=== PATIENT | female | born 1980 | race Caucasian/White ===

== ENCOUNTER 2023-04-30 12:03 | Inpatient (IN) | payer OTHER, MEDICAID ==
[2023-04-30] VITALS (35 sets, daily range): BP systolic 112–156; BP diastolic 55–93; PULSE 80–125; RESP 0–21; TEMP 97.4–98.1; O2SAT 93–100
[~2023-04-30] VITALS: Ht 172.7 cm; Wt 110.7 kg
[2023-04-30] MEDS ORDERED: SEMA0.253 INJ (12:48)
[2023-04-30] MEDS ORDERED: famotidine 20mg tablet PO ONE (13:00)
[2023-04-30] MEDS ORDERED: ceFOXitin 2GM-NS 100mL ADDvant 100 ML IV ONE (13:00)
[2023-04-30] MEDS ORDERED: HYDROmorphone/PF 0.2 MG/ML SYRINGE IM ONE (13:20)
[2023-04-30] MEDS ORDERED: HYDROmorphone/PF 0.2 MG/ML SYRINGE IV ONE (13:35)
[2023-04-30] MEDS: ringers solution, lacted 1,000 ML IV SCH (13:42)
[2023-04-30] MEDS ORDERED: BUPIVAcaine/PF 2.5mg/ml (0.25%) 10ml vial ONE (13:56)
[2023-04-30] MEDS ORDERED: propofol inj 20 ML IV ONE (15:19)
[2023-04-30] MEDS ORDERED: midazolam 1 mg/ML 2ml injection ONE (15:19)
[2023-04-30] MEDS ORDERED: rocuronium 10mg/ml inj IV ONE (15:19)
[2023-04-30] MEDS ORDERED: fentaNYL/PF 50MCG/1 ML 2ML syringe ONE (15:19)
[2023-04-30] MEDS ORDERED: sevoflurane 250ml liquid IH ONE (15:26)
[2023-04-30] MEDS ORDERED: ondansetron/PF 4mg/2ml inj IV PRN ×2 (15:30→19:50)
[2023-04-30] MEDS ORDERED: meperidine/PF 25mg/ml syringe IV PRN ×2 (15:30)
[2023-04-30] MEDS ORDERED: proCHLORperazine 10 MG/2 ml inj IV PRN (15:30)
[2023-04-30] MEDS ORDERED: ringers solution, lacted 1,000 ML IV SCH (15:30)
[2023-04-30] MEDS ORDERED: morphine 2 MG/ML inj. syringe IV PRN (15:30)
[2023-04-30] MEDS ORDERED: dexamethasone sod phosphate 4mg/ml inj. ONE (15:41)
[2023-04-30] MEDS ORDERED: ondansetron/PF 4mg/2ml inj ONE (16:18)
[2023-04-30] MEDS ORDERED: acetaminophen 1,000mg/100ml IV 100 ML IV ONE (16:21)
[2023-04-30] MEDS ORDERED: bacitracin 15gm ointment TP ONE (16:29)
[2023-04-30] MEDS ORDERED: sugammadex 200mg/2ml injection IV ONE (16:30)
--- NOTE | 2023-04-30 16:43 | NUR ---
Received from OR via [facility] IN STABLE CONDITION , accompanied by Anesthesiologist and CASE TECHNICIAN report given by CASE TECHNICIAN AND Anesthesiologist. Addendum: 04/30/23 at 1834 by Jemima Sheth RN Amended: Links added.
[2023-04-30] MEDS: meperidine/PF 25mg/ml syringe IV PRN ×4 (16:57→18:24)
[2023-04-30] MEDS ORDERED: BUPIVAcaine 0.25% w/Epi /PF 30ml vial IJ ONE (16:57)
[2023-04-30] MEDS ORDERED: oxyCODONE/APAP 10/325mg tablet PO STA (17:28)
[2023-04-30] MEDS: morphine 4 MG/ML inj SYRINge IV PRN ×3 (18:49→19:24)
[2023-04-30] MEDS ORDERED: ketorolac trometh. 30mg/ml inj. IV ONE (19:30)
[2023-04-30] MEDS ORDERED: ketamine 50mg/5ml syringe IV PRN (19:30)
[2023-04-30] MEDS ORDERED: HYDROmorphone/PF 0.2 MG/ML SYRINGE IV PRN (19:30)
[2023-04-30] MEDS ORDERED: HYDROmorph/NS 0.2 mg/ml PCA 100 ML IV SCH (19:50)
[2023-04-30] MEDS ORDERED: oxyCODONE/APAP 5-325mg tablet PO PRN (19:50)
[2023-04-30] MEDS: HYDROmorph/NS 0.2 mg/ml PCA 100 ML IV SCH ×2 (20:41→23:00)
--- NOTE | 2023-04-30 20:53 | NUR ---
PATIENT DISCHARGED FROM PACU IN STABLE CONDITION AFTER REPORT GIVEN TO RN TAKING OVER PATIENTS CARE. PATIENT TRANSFERRED TO ROOM 3012A VIA [facility] HEREDIA RN. Addendum: 04/30/23 at 2102 by Jemima Sheth RN Amended: Links added.
--- NOTE | 2023-04-30 21:00 | NUR ---
PATIENT RECIEVED FROM RECOVERY ROOM VIA GURNEY AND TRANSFERRED TO BED AND MADE HER COMFORTABLE.
[2023-04-30] MEDS ORDERED: PCA WASTE DOCUMENTATION 1 MG ML MC SCH (21:35)
[2023-04-30] MEDS ORDERED: zolpidem 5mg tablet PO PRN (23:00)
[2023-05-01] VITALS (7 sets, daily range): BP systolic 108–131; BP diastolic 53–74; PULSE 9–93; RESP 14–18; TEMP 97.9–98.8; O2SAT 93–99
[2023-05-01] MEDS: HYDROmorph/NS 0.2 mg/ml PCA 100 ML IV SCH ×9 (01:00→17:00)
--- NOTE | 2023-05-01 07:10 | NUR ---
Problems reprioritized. Patient report given, questions answered & plan of care reviewed with RADHA BANEGAS.
--- NOTE | 2023-05-01 09:38 | NUR ---
Dr Carroll in to see patient patient will be staying another night for pain control and nausea/vomiting control
[2023-05-01] MEDS: ringers solution, lacted 1,000 ML IV SCH ×3 (11:53→11:57)
[2023-05-01] MEDS: ondansetron/PF 4mg/2ml inj IV PRN (13:11)
[2023-05-01] MEDS: docusate sod 100mg capsule PO SCH ×2 (17:47→20:00)
[2023-05-01] MEDS ORDERED: oxyCODONE/APAP 10/325mg tablet PO PRN (19:00)
[2023-05-01] MEDS: oxyCODONE/APAP 10/325mg tablet PO PRN (19:18)
[2023-05-01] MEDS ORDERED: zolpidem 5mg tablet PO PRN (21:00)
[2023-05-02 02:00] VITALS: BP 127/63; PULSE 89; RESP 16; TEMP 98; O2SAT 93
[2023-05-02] MEDS: oxyCODONE/APAP 10/325mg tablet PO PRN ×2 (02:29→08:49)
[2023-05-02] MEDS: ondansetron/PF 4mg/2ml inj IV PRN ×2 (03:23→08:48)
[2023-05-02 06:00] VITALS: BP 126/71; PULSE 90; RESP 15; TEMP 97.3; O2SAT 95
--- NOTE | 2023-05-02 06:40 | NUR ---
Patient in room PCU 3015. I have received report from RADHA Guerrier and had the opportunity to ask questions and assume patient care.
[2023-05-02 08:45] VITALS: RESP 16; O2SAT 95
[2023-05-02] MEDS: docusate sod 100mg capsule PO SCH (08:48)
[2023-05-02 09:15] LABS: BASOPHILS % (AUTO) 0.3 % (0-1); EOSINOPHILS # (AUTO) 0.1 X10'3 (0-0.9); HEMATOCRIT 38.1 % (35.0-45.0); HEMOGLOBIN 12.9 g/dl (12.0-16.0); LYMPHOCYTES # (AUTO) 3.1 X10'3 (1.1-4.8); LYMPHOCYTES % (AUTO) 35.7 % (21-51); MEAN CORPUSCULAR HEMOGLOBIN 32.1 PG (27.0-31.0); MEAN CORPUSCULAR HGB CONC 33.8 g/dL (33.0-36.5); MEAN PLATELET VOLUME 7.8 FL (7.4-10.4); MONOCYTES # (AUTO) 0.5 X10'3 (0-0.9); MONOCYTES % (AUTO) 5.8 % (2-12); NEUTROPHILS % (AUTO) 57.2 % (42-75); PLATELET COUNT 235 X10'3 (140-440); RED BLOOD COUNT 4.01 X10'6 (4.20-5.60); RED CELL DISTRIBUTION WIDTH 13.3 % (11.5-14.5); WHITE BLOOD COUNT 8.7 X10'3 (4.5-11.0)
[2023-05-02 09:27] LABS: ALANINE AMINOTRANSFERASE 66 U/L (12-78); ALBUMIN 2.6 G/DL (3.4-5.0); ALBUMIN/GLOBULIN RATIO 0.8 (1.1-1.5); ALKALINE PHOSPHATASE 54 IU/L (46-116); ANION GAP 9 (8-16); ASPARTATE AMINO TRANSFERASE 55 U/L (10-37); BILIRUBIN,TOTAL 0.3 MG/DL (0.1-1.0); BLOOD UREA NITROGEN 15 MG/DL (7-18); BUN/CREATININE RATIO 12.6 (10.0-20.0); CALCIUM 8.3 MG/DL (8.5-10.1); CHLORIDE 103 MMOL/L (99-107); CREATININE 1.19 MG/DL (0.40-0.90); GLUCOSE 131 MG/DL (70-104); POTASSIUM 3.6 MMOL/L (3.5-5.1); SODIUM 136 MMOL/L (135-145); TOTAL CARBON DIOXIDE 24.1 MMOL/L (24-32); eCRCL 62 ML/MIN; eGFR 50 ML/MIN
[2023-05-02 09:49] VITALS: RESP 16
--- NOTE | 2023-05-02 10:30 | NUR ---
Pt aware of being DC'd ( had provided verbally to pt & received verbal order for routine DC as well @ approx 0930) & found by co-workers walking down hallway towards elevators. By the time informed of this, unable to catch up to pt to ask her to wait for the DC instuctions. Pt previously informed that after informs pt he is discharging her from the hospital that time is needed to prepare the DC & then give her the instructions, that she would need to wait for myself to complete the discharge, remove her IV & WC or ambulate her to the front exit. Pt verbalized understanding.
== END 2023-05-02 10:45 | disposition left against medical advice (07) | DRG 419 ==
LOC: OR 12:03 → PCU 3S 19:50 → OBSVTOIN 19:50 → PCU 3S 21:55
PROVIDERS: ADMIT Surgery; ATTEND Surgery
PROC: 0HB4XZZ Excision of Neck Skin, External Approach (ICD-10-PCS; 2023-04-30)
PROC: 0FT44ZZ Resection of Gallbladder, Percutaneous Endoscopic Approach (ICD-10-PCS; principal; 2023-04-30 15:26)
DX: K80.42 Calculus of bile duct with acute cholecystitis without obstruction (principal); Z53.21 Procedure and treatment not carried out due to patient leaving prior to being seen by health care provider; Z90.710 Acquired absence of both cervix and uterus
CPT/HCPCS: Z7506; Z7508; 36415; 80053; 82948; 83735; 85025; 87081; A4215; A4618; A6213; A7000; G0378; J0131; J0694; J1100; J1170; J1885; J2175; J2250; J2270; J2405; J2704; J3010; J3490; J7120; S0020

== ENCOUNTER 2024-12-16 13:21 | Emergency (ER) | payer MEDICAID, OTHER ==
[~2024-12-16] VITALS: Ht 170.2 cm; Wt 104.5 kg
[~2024-12-16 13:21] MED LIST: SEMA0.253 INJ
[2024-12-16 13:34] VITALS: BP 118/72; PULSE 85; TEMP 98.5; O2SAT 96
--- NOTE | 2024-12-16 15:05 | Physician Documentation ---
History of Present Illness ~ Chief Complaint: Back Pain Stated Complaint: LOWER BACK PAIN Time Seen by MD: 14:52 HPI Patient is seen today with complaints of left-sided low back pain and left hip pain for a few days. Patient states she does have appointments coming up with her orthopedic speech language specialist and her primary care provider here in the near future. Patient denies any saddle anesthesia or changes in bowel or bladder habits. Patient has no other concern or complaint at this time. She denies any injury or falls. She denies any chest pain or shortness of breath or abdominal pain or nausea, vomiting, diarrhea. Medication Reconciliation Allergies: Coded Allergies: No Known Drug Allergies (Verified Allergy, Unknown, 04/30/23) Scheduled Semaglutide (Wegovy), 1.7 MG INJ Q7D, (Reported) Review of Systems Constitutional: Denies: chills, fever, weakness Eyes: Denies: pain, blurred vision ENT: Denies: ear pain, nose pain, throat pain, mouth pain Respiratory: Denies: cough, shortness of breath Cardiovascular: Denies: chest pain, palpitations Gastrointestinal: Denies: abdominal pain, nausea, vomiting Genitourinary: Denies: burning, dysuria Female Genitalia: Denies: vaginal discharge, pelvic pain Neurological: Denies: headache, dizziness Musculoskeletal: Denies: pain, swelling Integumentary: Denies: rash, lesions Allergic/Immunologic: Denies: hives, itching Hematologic/Lymphatic: Denies: no symptoms reported Psychiatric: Denies: depression, anxiety Physical Exam Physical Exam Vital Signs: Temperature: 98.5, Source: Oral, Heart Rate: 85, Respiratory Rate: 18, BP: 118/72, Pulse Oximetry: 96, Weight: 104.550 Physical Exam General: Awake and Alert, no acute distress. HEENT: Conjunctiva pink, Sclera clear, Mucus Membranes moist. Neck: Supple without masses and tenderness. Resp: Unlabored. Lungs clear to auscultation bilaterally. Heart: Regular Rate and rhythm, normal S1 and S2 without murmur, rub or gallop. Musculoskeletal system: Patient on exam has significant decreased range of motion of the lumbar spine in all planes of motion. Patient has significant tenderness to palpation of the left greater trochanteric prominence/bursa as well as the left SI joint. Patient is neurovascularly intact distally. Motor function intact distally. Strength intact. Extremities: No cyanosis,clubbing or edema. Skin: Warm and Dry. Progress Results/Orders Results/Orders Vital Signs 12/16/24 13:34 Temp 98.5 Pulse 85 Resp 18 B/P (MAP) 118/72 Pulse Ox 96 Medical Decision Making Findings Patient is seen today with complaints of left-sided low back pain and left hip pain for a few days. Patient states she does have appointments coming up with her orthopedic speech language specialist and her primary care provider here in the near future. Patient denies any saddle anesthesia or changes in bowel or bladder habits. Patient has no other concern or complaint at this time. She denies any injury or falls. She denies any chest pain or shortness of breath or abdominal pain or nausea, vomiting, diarrhea. Patient given dose of Toradol 30 mg IM in the ED today. Prescription of methocarbamol and Sarver 5/325 mg sent to patient pharmacy to be taken as directed. Patient will follow up with primary care and orthopedic speech language specialist as soon as possible. Patient will return to ED with any worsening, concerning or changing symptoms. I recommend patient also get referral to physical therapy for further eval and treatment. Departure Disposition: HOME / SELF CARE / HOMELESS Impression: Primary Impression: Low back pain Qualified Codes: M54.50 - Low back pain, unspecified Additional Impression: Greater trochanteric bursitis of left hip Condition: Stable Discharge Instructions: Chronic Back Pain Additional Instructions: Patient given dose of Toradol 30 mg IM in the ED today. Prescription of methocarbamol and Sarver 5/325 mg sent to patient pharmacy to be taken as directed. Patient will follow up with primary care and orthopedic speech language specialist as soon as possible. Patient will return to ED with any worsening, concerning or changing symptoms. I recommend patient also get referral to physical therapy for further eval and treatment. Referrals: NO PRIMARY CARE PROVIDER (PCP) Prescriptions Methocarbamol (Methocarbamol) 750 Mg Tablet 1-2 TAB PO Q8H, #90 TAB 0 Refills Prov: ANDREEA HERNÁNDEZ 12/16/24 Hydrocodone Bit/Acetaminophen 5/325 MG (Sarver 5/325 MG) 5 Mg/325 Mg Tablet 1-2 TAB PO Q6H PRN for pain, #30 TAB Prov: ANDREEA HERNÁNDEZ 12/16/24 Signature Scribe Signature: No scribe Attestation: No scribe BETTYANDREEA R [facility] Dec 16, 2024 15:05
[2024-12-16 15:10] VITALS: RESP 18
[2024-12-16] MEDS: ketorolac trometh 30MG/ML vial 30 MG/ML VIAL IM STA (15:10)
[2024-12-16] MEDS ORDERED: HYDR-3965 PO (15:12)
[2024-12-16] MEDS ORDERED: METH-798 PO (15:16)
== END 2024-12-16 15:32 | disposition home or self-care (01) ==
LOC: ER 13:22
DX: M54.50 Low back pain, unspecified (principal); M70.62 Trochanteric bursitis, left hip; Z79.899 Other long term (current) drug therapy
CPT/HCPCS: 96372; 99283; J1885